=== PATIENT | female | born 1970 | race African-American/Black ===

== ENCOUNTER 2022-03-29 08:09 | Emergency (ER) | payer MEDICAID ==
[~2022-03-29] VITALS: Ht 162.6 cm; Wt 65.8 kg
[2022-03-29 08:16] VITALS: BP 130/97
--- NOTE | 2022-03-29 08:18 | NUR ---
PT IN OUTSIDE LOBBY
--- NOTE | 2022-03-29 08:22 | NUR ---
52 Y/O FEMALE BIB SELF C/O OF NAUSEA AFTER TESTING POSITIVE FOR COVID 19 ON Thursday03/24/22. DENIES ANY VOMITING, DENIES DIARRHE, DENIES PAIN OR OTHER RESPIRATORY SYMPTOMS NKA PMH: RHEUMATOID ARTHRITIS
--- NOTE | 2022-03-29 08:24 | NUR ---
DR MOORE EVALUATING PT
[2022-03-29] MEDS ORDERED: KETOROLAC 30 MG/ML VIAL IM ONE (08:35)
[2022-03-29] MEDS ORDERED: PROCHLORPERAZINE 5 MG TAB PO ONE (08:35)
[2022-03-29] MEDS ORDERED: PROC-66 PO (08:48)
[2022-03-29] MEDS ORDERED: DIPH25TA53 PO (08:48)
[2022-03-29 09:03] VITALS: BP 130/97
--- NOTE | 2022-03-29 09:04 | NUR ---
Patient discharged with v/s stable. Written and verbal after care instructions ABOUT NAUSEA AND COVID19 given and explained. Patient alert, oriented and verbalized understanding of instructions. Ambulatory with steady gait. All questions addressed prior to discharge. ID band removed. Patient advised to follow up with PMD. Rx of COMPAZINE, BENDARYL given. Patient educated on indication of medication including possible reaction and side effects. Opportunity to ask questions provided and answered.
== END 2022-03-29 09:04 | disposition home or self-care (01) ==
LOC: MED 08:09
DX: U07.1 COVID-19 (principal); R11.0 Nausea; R51.9 Headache, unspecified; Z79.899 Other long term (current) drug therapy
CPT/HCPCS: 96372; 99283; J1885; Q0164

== ENCOUNTER 2022-04-02 15:04 | Emergency (ER) | payer MEDICAID ==
[~2022-04-02] VITALS: Ht 167.6 cm; Wt 59.0 kg
[~2022-04-02 15:04] MED LIST: DIPH25TA53 PO; PROC-66 PO
[2022-04-02 15:09] VITALS: BP 155/98
--- NOTE | 2022-04-02 15:13 | NUR ---
PT AMB TO BED 1.
--- NOTE | 2022-04-02 15:31 | NUR ---
52 Y/O FEMALE C/O LIGHT HEADACHE, DIZZINESS X 1 WEEK. PT STATES SHE WAS COVID TESTED AND POSITIVE 10 DAYS AGO. DENIES FEVER/CHILLS. DENIES N/V/D. PMH: HTN, GASTRIIS , RA NKA
[2022-04-02] MEDS ORDERED: KETOROLAC 15 MG/ML VIAL IVP ONE (15:40)
[2022-04-02] MEDS ORDERED: ONDANSETRON 4 MG/2 ML VIAL IVP ONE ×2 (15:40→16:10)
[2022-04-02] MEDS ORDERED: NACL 0.9% 1,000 ML IV ONE (15:40)
--- NOTE | 2022-04-02 15:52 | NUR ---
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
--- NOTE | 2022-04-02 15:55 | NUR ---
GAVE REPORT TO GEENA CABRERA. TRANSFER OF CARE AT THIS TIME.
[2022-04-02 15:56] LABS: BASOPHILS % (AUTO) 0.3 % (0.0-2.0); HEMATOCRIT 39.4 % (36-48); HEMOGLOBIN 12.8 g/dL (12.0-16.0); LYMPHOCYTES # (AUTO) 0.7 K/uL (2.5-16.5); LYMPHOCYTES % (AUTO) 7.5 % (20.5-51.1); MEAN CORPUSCULAR HEMOGLOBIN 28 pg (27-31); MEAN CORPUSCULAR HGB CONC 33 g/dL (33-37); MEAN CORPUSCULAR VOLUME 86.6 fL (80-94); MONOCYTES # (AUTO) 0.2 K/uL (0.8-1.0); MONOCYTES % (AUTO) 2.3 % (1.7-9.3); NEUTROPHILS # (AUTO) 8.3 K/uL (1.8-7.7); NEUTROPHILS % (AUTO) 89.9 % (42.2-75.2); PLATELET COUNT (AUTO) 236 K/uL (140-450); RED BLOOD CELL COUNT(AUTO) 4.55 MIL/uL (4.20-5.40); RED CELL DISTRIBUTION WIDTH 13.7 % (11.6-13.7); WHITE BLOOD COUNT (AUTO) 9.3 K/uL (4.8-10.8)
[2022-04-02 16:11] LABS: ALBUMIN 3.7 g/dL (3.4-5.0); ANION GAP 13.3 (8-16); CARBON DIOXIDE 24.7 mmol/L (21-32); CREATININE 0.7 mg/dL (0.6-1.3); TOTAL BILIRUBIN 0.5 mg/dL (0.0-1.0)
[2022-04-02 17:42] LABS: APPEARANCE,URINE CLEAR (CLEAR); BILIRUBIN,URINE NEGATIVE (NEGATIVE); BLOOD, URINE NEGATIVE (NEGATIVE); LEUKOCYTE ESTERASE ,URINE NEGATIVE (NEGATIVE); NITRITE, URINE NEGATIVE (NEGATIVE); PH,URINE 6.5 (5.0-9.0); UGLUCOSE NEGATIVE (NEGATIVE)
[2022-04-02] MEDS ORDERED: MECL-303 PO (17:45)
[2022-04-02] MEDS ORDERED: MECLIZINE 25 MG TAB PO ONE (17:45)
[2022-04-02] MEDS ORDERED: CARB15DR61 OT (17:45)
[2022-04-02] MEDS ORDERED: KETOROLAC 30 MG/ML VIAL IM ONE (17:45)
[2022-04-02 17:54] LABS: COLOR,URINE STRAW (YELLOW)
[2022-04-02 18:20] VITALS: BP 148/92
--- NOTE | 2022-04-02 18:20 | NUR ---
Patient discharged with v/s stable. Written and verbal after care instructions given FOR EARWAX BUILDUP AND DIZZINESS and explained. Patient alert, oriented and verbalized understanding of instructions. Ambulatory with steady gait. All questions addressed prior to discharge. ID band removed. Patient advised to follow up with PMD. Rx of DEBROX, AND MECLIZINE given. Patient educated on indication of medication including possible reaction and side effects. Opportunity to ask questions provided and answered.
--- NOTE | 2022-04-03 11:17 | NUR ---
LATE ENTRY. NS 0.9% BOLUS DISCONTINUED ON 04/02/22 AT 1820
== END 2022-04-02 18:20 | disposition home or self-care (01) ==
LOC: MED 15:04
DX: E86.0 Dehydration (principal); H61.22 Impacted cerumen, left ear; I10 Essential (primary) hypertension; Z79.899 Other long term (current) drug therapy
CPT/HCPCS: 36415; 80053; 81003; 85025; 93005; 96361; 96372; 96374; 96375; 99284; J1885; J2405; J7030; J8597